=== PATIENT | male | born 1990 | race Caucasian/White ===

== ENCOUNTER 2017-12-28 10:47 | Emergency (ER) | payer OTHER ==
[~2017-12-28] VITALS: Ht 185.4 cm; Wt 172.8 kg
[2017-12-28] MEDS ORDERED: TYLENOL SINUS1 EAC5 PO (11:22)
[2017-12-28] MEDS ORDERED: IBUPROFEN 600600 M1 PO (11:23)
[2017-12-28] MEDS ORDERED: CIPROFLOXIN HC2.5 M1 OTIC (11:42)
[2017-12-28] MEDS ORDERED: ZPAK PO (11:42)
[2017-12-28] MEDS ORDERED: TRAMADOL 50 MG50 MG PO (11:42)
[2017-12-28 11:44] LABS: INFLUENZA A ANTIGEN None Detected (None Detect); INFLUENZA B ANTIGEN None Detected (None Detect)
[2017-12-28 11:53] VITALS: BP 138/80
[2017-12-28] MEDS ORDERED: AUGMENTIN 875-1 EACH PO (21:30)
[2017-12-28] MEDS ORDERED: HYDROCODONE-AP1 EAC6 PO (21:30)
[2017-12-28] MEDS ORDERED: MEDROLDOSEPACK PO (21:30)
== END 2017-12-28 11:54 | disposition home or self-care (01) ==
LOC: M.ERS 10:47
PROVIDERS: Physician Assistant
DX: H66.92 Otitis media, unspecified, left ear (principal); H60.92 Unspecified otitis externa, left ear

== ENCOUNTER 2017-12-28 19:50 | Emergency (ER) | payer OTHER ==
[~2017-12-28] VITALS: Ht 185.4 cm; Wt 127.5 kg
[~2017-12-28 19:50] MED LIST: CIPROFLOXIN HC2.5 M1 OTIC; IBUPROFEN 600600 M1 PO; TRAMADOL 50 MG50 MG PO; TYLENOL SINUS1 EAC5 PO; ZPAK PO
[2017-12-28] MEDS ORDERED: AUGMENTIN 875-1 EACH PO (21:30)
[2017-12-28] MEDS ORDERED: HYDROCODONE-AP1 EAC6 PO (21:30)
[2017-12-28] MEDS ORDERED: MEDROLDOSEPACK PO (21:30)
[2017-12-28 21:54] VITALS: BP 148/96
== END 2017-12-28 21:54 | disposition home or self-care (01) ==
LOC: M.ERS 19:50
DX: J01.90 Acute sinusitis, unspecified (principal); H66.92 Otitis media, unspecified, left ear